=== PATIENT | female | born 1995 | race Caucasian/White ===

== ENCOUNTER 2017-12-05 11:59 | Observation (INO) ==
--- NOTE | 2017-12-05 12:10 | Emergency Department Note ---
Disposition Clinical Impression: Dehydration, mild, Intractable abdominal pain Migraine Qualifiers: Migraine type: unspecified Status migrainosus presence: without status migrainosus Intractability: not intractable Qualified Code(s): G43.909 - Migraine, unspecified, not intractable, without status migrainosus Intractable nausea and vomiting Qualifiers: Vomiting type: unspecified Qualified Code(s): R11.2 - Nausea with vomiting, unspecified Disposition: Admitted As Inpatient Condition: Fair Referrals: Ines Hansen, ROLL EXAMINER [Primary Care Provider] - Forms: ED Satisfaction Letter Time of Disposition: 15:22 General Adult HPI - General Chief complaint: ED General Medical Stated complaint: nausea,migraine,constipated multiple complaints Time Seen by Provider: 12/05/17 12:09 Source: patient Mode of arrival: ambulatory Limitations: no limitations Nursing Notes Reviewed: Yes Vital Signs Reviewed: Yes - History of Present Illness HPI Narrative: Patient is a 22-year-old female with past medical history acid reflux, gastric ulcers when she was a teenager. She presents today due to epigastric pain/ burning, radiates up into her esophagus, associated with reflux of gastric contents into the mouth. She also complains of a sensation of being short of breath due to her throat being irritated. She also states that she feels like she has a generalized headache but denies vision changes, numbness, tingling, weakness. She also admits to constipation. She says that she has vomited twice , nonbloody, nonbilious, today. She also admits to subjective fevers. She was also seen a few days ago at a different ER due to similar symptoms and was started on omeprazole. She has taken about 3 days of this medication and says that she felt somewhat better and admits that it has decreased the burning sensation. She does not take any other current medication at this time. Pain Scale: 0 - Related Data Previous Rx's Medication Instructions Recorded Metoclopramide [Reglan] 5 mg PO Q8HR #100 mls 12/02/17 Omeprazole 20 mg PO DAILY #30 tablet. 12/02/17 Allergies Allergy/AdvReac Type Severity Reaction Status Date / Time diphenhydramine AdvReac Palpitation Verified 12/02/17 10:48 [From Wendy] s All systems ED: reviewed and negative except as stated. Constitutional: Reports: fever Respiratory: Reports: dyspnea Gastrointestinal: Reports: nausea, vomiting, constipation. Denies: abdominal pain, diarrhea Genitourinary: Denies: urgency, dysuria, frequency, hematuria Integumentary: Denies: rash Neurological: Denies: headache, weakness, numbness, paresthesias Endocrine: Reports: fatigue Past Medical History - Past Medical History Attestation: Yes The following information was validated with the patient. 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 - Social History Smoking Status: Never smoker Smokeless Tobacco Status: No Alcohol use: Reports: none Drug use: Reports: none Physical Exam - General Limitations: no limitations General appearance: alert - Head Head exam: atraumatic, normocephalic, normal inspection - Eye Eye exam: Present: normal appearance, PERRL, EOMI - ENT ENT exam: normal oropharynx, mucous membranes dry - Neck Neck exam: Present: normal inspection, full ROM, trachea midline - Chest Chest inspection: Present: normal inspection, symmetric chest wall rise - Respiratory Respiratory exam: Present: normal lung sounds bilaterally - Cardiovascular Cardiovascular exam: Present: normal rhythm, tachycardia, irregular rhythm - Abdominal Exam Abdominal exam: Present: soft, tenderness (mild to moderate epigastric pain). Absent: distention, guarding, rebound, rigidity - Extremities Exam Extremities exam: Present: normal inspection, full ROM. Absent: tenderness, pedal edema - Neurological Exam Neurological exam: Present: alert, oriented X3 - Psychiatric Psychiatric exam: Present: normal affect, normal mood - Skin Skin exam: Present: warm, dry, intact, normal color Course Course Narrative: Patient was tachycardic on presentation. Otherwise, the rest of the vitals were within normal limits. Physical exam shows a patient who appears to feel unwell, has dry mucous membranes, epigastric tenderness that is mild to moderate in intensity. Overall, she is describing epigastric burning that radiates into her throat, vomiting, GERD or ulcer related symptoms. We will give the patient GI cocktail, Phenergan for nausea, fluids, perform basic blood work, LFTs, lipase for further assessment. 15:20 white blood cell count within normal limits. LFTs and lipase within normal limits. Patient was given 1 L normal saline bolus, she was having some nausea after Zofran and gave her 25 mg of Phenergan. Despite this, she is driving intractable nausea, she is also still having epigastric abdominal discomfort after GI cocktail. She is still tachycardic in the 120s. Blood pressure remained stable at this time. We will order the patient another liter bolus. Discussed admission with the hospitalist for intractable nausea, vomiting, abdominal discomfort. She has been admitted at this time. Vital Signs Temperature 97.9 F 12/05/17 12:03 Pulse Rate 148 12/05/17 12:03 Respiratory Rate 18 12/05/17 12:03 Blood Pressure 114/89 12/05/17 12:03 O2 Sat by Pulse Oximetry 99 12/05/17 12:03 Temperature 97.9 F 12/05/17 12:03 Pulse Rate 116 12/05/17 13:54 Respiratory Rate 16 12/05/17 13:54 Blood Pressure 111/74 12/05/17 13:54 O2 Sat by Pulse Oximetry 96 12/05/17 13:54 Oxygen Delivery Oxygen Delivery Room Air Medical Decision Making - [facility] Narrative Medical decision making narrative: white blood cell count within normal limits. LFTs and lipase within normal limits. Patient was given 1 L normal saline bolus, she was having some nausea after Zofran and gave her 25 mg of Phenergan. Despite this, she is driving intractable nausea, she is also still having epigastric abdominal discomfort after GI cocktail. She is still tachycardic in the 120s. Blood pressure remained stable at this time. We will order the patient another liter bolus. Discussed admission with the hospitalist for intractable nausea, vomiting, abdominal discomfort. She has been admitted at this time. - Medical Records Medical records reviewed: Yes I reviewed the patient's medical records. - Lab Data Lab results reviewed: Yes I reviewed the patient's lab results. Result diagrams: 12/05/17 12:25 12/05/17 14:22 Lab Results 12/05/17 12/05/17 12/05/17 Range/Units 12:25 12:25 14:22 WBC 7.3 (4.3-11.1) K/mcL RBC 4.74 (3.82-4.97) M/mcL Hgb 14.1 D (11.5-15.4) g/dL Hct 44.3 (35.3-44.9) % MCV 93.5 (83.0-100.0) fL MCH 29.7 (28.0-33.3) pg MCHC 31.8 (31.6-35.5) g/dL RDW 12.4 (11.5-14.5) % Plt Count 150 (140-400) K/mcL MPV 12.5 H (9.4-12.4) fL Immature Gran % Test Not Performed Seg Neutrophils % 20.0 % Band Neutrophils % 10.0 H (0-4) % Lymphocytes % 62.0 % Monocytes % 8.0 % Eosinophils % Test Not Performed Basophils % Test Not Performed Neutrophils # 2.2 (1.6-8.9) K/mcL Lymphocytes # 4.5 (0.6-4.6) K/mcL Monocytes # 0.6 (0.0-1.3) K/mcL Eosinophils # Test Not Performed Basophils # Test Not Performed Reactive Lymphocytes Present A (Not Present) Platelet Estimate Normal (Normal) Clumped Platelets Few A (Not Present) Immature Plt Fraction 12.2 H (1.1-6.1) % Sodium 135 L (136-145) mEq/L Potassium 4.6 (3.5-5.1) mEq/L Chloride 101 (98-107) mEq/L Carbon Dioxide 15 L (23-29) mEq/L BUN 11 (6-20) mg/dL Creatinine 0.61 (0.60-1.20) mg/dL Est GFR ( Amer) > 60 (> 60) Est GFR (Non-Af Amer) > 60 (> 60) BUN/Creatinine Ratio 18 (6-26) Glucose 55 L (70-105) mg/dL Calculated Osmolality 277 L (280-300) Calcium 8.9 (8.6-10.3) mg/dL Total Bilirubin 0.5 (0.3-1.0) mg/dL Direct Bilirubin 0.2 (0.0-0.2) mg/dL Indirect Bilirubin 0.3 (0.0-1.2) mg/dL AST 44 H (13-39) Units/L ALT 23 (7-52) Units/L Alkaline Phosphatase 67 (34-104) Units/L Serum Total Protein 7.8 (6.4-8.9) g/dL Albumin 4.3 (3.5-5.7) g/dL Globulin 3.5 (2.4-3.5) g/dL Albumin/Globulin Ratio 1.2 (1.1-2.2) Lipase 63 (11-82) Units/L Specimen Rejected Hemolyzed S.B.A.R. - S.B.A.R. Situation: Demographics, MOA Background: Presenting Complaint S.B.A.R. Report Given to: Francisca AriasBShayyANathaniel Repor Time: 15:29
[2017-12-05] MEDS ORDERED: GI Cocktail 40 ML EACH PO ONE (12:18)
[2017-12-05] MEDS ORDERED: Ondansetron 4 MG/2 ML VIAL IVP ONE (12:18)
[2017-12-05] MEDS ORDERED: 0.9 % Sodium Chloride 1,000 ML IVC ONE ×2 (12:20→15:16)
--- NOTE | 2017-12-05 12:39 | Emergency Department Note ---
Disposition Clinical Impression: Dehydration, mild Migraine Qualifiers: Migraine type: unspecified Status migrainosus presence: without status migrainosus Intractability: not intractable Qualified Code(s): G43.909 - Migraine, unspecified, not intractable, without status migrainosus Disposition: Home, Self-Care Forms: ED Satisfaction Letter, Work/School Release Time of Disposition: 12:39 General Adult HPI - General Chief complaint: ED General Medical Stated complaint: nausea,migraine,constipated multiple complaints Time Seen by Provider: 12/05/17 12:09 Source: patient Mode of arrival: ambulatory Limitations: no limitations Nursing Notes Reviewed: Yes Vital Signs Reviewed: Yes - History of Present Illness Pain Scale: 0 - Related Data Previous Rx's Medication Instructions Recorded Metoclopramide [Reglan] 5 mg PO Q8HR #100 mls 12/02/17 Omeprazole 20 mg PO DAILY #30 tablet. 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 We had independent face-to- face examination and discussion. The patient was seen with the emergency medicine resident Dr. Javan Lofton I examined this patient and my medical decision-making was reviewed with the Resident Physician/TRIPLE DRUM OPERATOR/PA. I agree with the documented findings, disposition and treatment plan as described except to the extent set forth below. Briefly [id number]-[id number] female history of migraines this been having multiple episodes nausea vomiting and headache. Was seen yesterday at an outside ER was given a prescription for omeprazole but no ED workup. Patient appears dehydrated mild distress be given analgesics antiemetics IV fluid bolus screening labs. Disposition pending.: Time: 12:38 Vital Signs Temperature 97.9 F 12/05/17 12:03 Pulse Rate 148 03/31/18 12:03 Respiratory Rate 18 12/05/17 12:03 Blood Pressure 114/89 12/05/17 12:03 O2 Sat by Pulse Oximetry 99 12/05/17 12:03 Temperature 97.9 F 12/05/17 12:03 Pulse Rate 148 12/05/17 12:03 Respiratory Rate 18 12/05/17 12:03 Blood Pressure 114/89 12/05/17 12:03 O2 Sat by Pulse Oximetry 99 12/05/17 12:03 Oxygen Delivery Oxygen Delivery Room Air
[2017-12-05 12:46] LABS: Hematocrit 44.3 % (35.3-44.9); Hemoglobin 14.1 g/dL (11.5-15.4); Immature Platelets 12.2 % (1.1-6.1); Mean Corpuscular HGB Conc 31.8 g/dL (31.6-35.5); Mean Corpuscular Hemoglobin 29.7 pg (28.0-33.3); Mean Corpuscular Volume 93.5 fL (83.0-100.0); Mean Platelet Volume 12.5 fL (9.4-12.4); Monocytes # 0.6 K/mcL (0.0-1.3); Platelet Count 150 K/mcL (140-400); Red Blood Count 4.74 M/mcL (3.82-4.97); Red Cell Distribution Width 12.4 % (11.5-14.5)
[2017-12-05 13:24] LABS: Lymphocytes # 4.5 K/mcL (0.6-4.6); Neutrophils # 2.2 K/mcL (1.6-8.9); Platelet Estimate Normal (Normal); Reactive Lymphocytes Present (Not Present)
[2017-12-05 13:25] LABS: Platelet Clumps Few (Not Present)
[2017-12-05] MEDS ORDERED: *HR* Promethazine 25 MG/ML VIAL IVP ONE (14:16)
[2017-12-05 14:47] LABS: Alanine Aminotransferase 23 Units/L (7-52); Albumin 4.3 g/dL (3.5-5.7); Albumin/Globulin Ratio 1.2 (1.1-2.2); Alkaline Phosphatase 67 Units/L (34-104); Aspartate Amino Transferase 44 Units/L (13-39); BUN/Creatinine Ratio 18 (6-26); Bilirubin,Direct 0.2 mg/dL (0.0-0.2); Bilirubin,Indirect 0.3 mg/dL (0.0-1.2); Bilirubin,Total 0.5 mg/dL (0.3-1.0); Blood Urea Nitrogen 11 mg/dL (6-20); Calcium 8.9 mg/dL (8.6-10.3); Carbon Dioxide 15 mEq/L (23-29); Chloride 101 mEq/L (98-107); Globulin 3.5 g/dL (2.4-3.5); Glucose 55 mg/dL (70-105); Lipase 63 Units/L (11-82); Osmolality,Calculated 277 (280-300); Potassium 4.6 mEq/L (3.5-5.1); Sodium 135 mEq/L (136-145); Total Protein 7.8 g/dL (6.4-8.9); eGFR For African Americans > 60 (> 60); eGFR For Non-African Americans > 60 (> 60)
[2017-12-05] MEDS ORDERED: Naloxone 0.4 MG/ML INJ IVP PRN (16:42)
--- NOTE | 2017-12-05 16:59 | Internal Med History&Physical ---
Date of Encounter: 12/05/17 Time of Encounter: 16:50 Assessment and Plan (1) Intractable nausea and vomiting Current visit: Yes Status: Acute Patient has intractable nausea vomiting, most likely related to the migraine attack. But will check KUB to rule out obstructions. Check hCG to rule out a . patient does state that she has constipation, no stool for 5 days. will waiting for the x-ray to determine what agency to give to her, she is unable to tolerated any oral. may have to start the enema if x-ray does show constipation Continue supportive care IV fluids, zofran and nothing by mouth Qualifiers: Vomiting type: unspecified Qualified Code(s): R11.2 - Nausea with vomiting , unspecified (2) Migraine Current visit: Yes Status: Acute Patient has persistent headache from migraine attack we will try a migraine cocktail Qualifiers: Migraine type: without aura Status migrainosus presence: without status migrainosus Intractability: intractable Qualified Code(s): G43.019 - Migraine without aura, intractable, without status migrainosus (3) Constipation Current visit: Yes Status: Chronic Pending abdominal x-ray Qualifiers: Constipation type: chronic idiopathic constipation Qualified Code(s): K59.04 - Chronic idiopathic constipation (4) Dehydration, mild Current visit: Yes Status: Acute Continue IV fluids Internal Medicine - H&P: HPI Chief complaint: nausea and vomiting Admitted From: Home Plans for Post Hospital Care: Home History of present illness: Ms. Moran is a 22 year old female who has history of migraine presented to emergency room for nausea vomiting headache for 5 days. Patient has a 5 month old baby, per her mother, patient 's migraine BETTS was well controlled up to the time she delivered her baby 5 months ago. Over the last 5 days, her nausea vomiting became persistent, she is unable to keep any thing down. Headache is typical for her migraine attacks, located in a different place, front ,top , left , 10 out of 10, constant associated was photophobia and nausea vomiting. BETTS worsening at night. She has been unable to keep any since down over last 5 days she is to be dehydrated. Headache worse at night which is typical for her migraine headaches currently she drinks is 7 out of 10. She denies fever or chills no cough. Denies abdominal pain, patient does complain of constipation, no stool over last 5 days. In the emergency room lab was unremarkable. She is going to be admitted for headaches nausea vomiting controlled, constipation. We will check KUB to assist Past Med Surg Social Fam HX - Past Medical History Medical history: non-contributory, GERD, migraine Psychiatric history: no psych history - Social History Smoking Status: Never smoker Smokeless Tobacco Status: No Alcohol use: none Drug use: none Internal Medicine - H&P: Meds Metoclopramide [Reglan] 5 mg PO Q8HR #100 mls 12/02/17 [Rx] Omeprazole 20 mg PO DAILY #30 tablet. 12/02/17 [Rx] 3 Allergy/AdvReac Type Severity Reaction Status Date / Time diphenhydramine AdvReac Palpitation Verified 12/05/17 16:20 [From Wendy] s All Systems PM: A 10-system review of systems was performed and is negative for pertinent findings except as documented above in the HPI. - Constitutional Vitals: Temp Pulse Resp BP Pulse Ox 99 F 110 16 120/64 995 12/05/17 16:24 12/05/17 16:04 12/05/17 16:24 12/05/17 16:24 12/05/17 16:04 Internal Med - H&P Results - Labs CBC & Chem 7: 12/05/17 12:25 12/05/17 14:22
[2017-12-05] MEDS ORDERED: Ketorolac 30 MG/ML VIAL IVP ONE (17:11)
[2017-12-05] MEDS ORDERED: Metoclopramide 10 MG/2 ML VIAL IVP ONE (17:12)
[2017-12-05 17:17] LABS: INR 1.1; Prothrombin Time 12.3 Seconds (9.4-12.1)
[2017-12-05] MEDS ORDERED: D5% in Water 1,000 ML IVC ONE (17:48)
[2017-12-05] MEDS ORDERED: Dextrose Gel 15 GM/37.5 ML TUBE PO ONE (18:02)
[2017-12-05] MEDS: D5% in 0.45% NACL 1,000 ML IVC SCH (19:39)
[2017-12-05] MEDS: Pantoprazole 40 MG VIAL IVP SCH (19:40)
[2017-12-05] MEDS: *HR* LORazepam 2 MG/ML VIAL IVP SCH ×2 (19:43→23:43)
[2017-12-05] MEDS: Ringers Solution, Lactated 1,000 ML IVC SCH (21:15)
[2017-12-06] MEDS: Metoclopramide 10 MG/10 ML UD.LIQ PO SCH ×2 (01:33→09:00)
[2017-12-06] MEDS ORDERED: Acetaminophen 325 MG TABLET PO ONE (03:32)
[2017-12-06] MEDS: *HR* LORazepam 2 MG/ML VIAL IVP SCH ×2 (03:44→08:59)
[2017-12-06] MEDS ORDERED: Acetaminophen/Butalbital/CaffeineTABLET PO ONE ×2 (05:31→20:30)
[2017-12-06] MEDS: D5% in 0.45% NACL 1,000 ML IVC SCH (05:43)
[2017-12-06] MEDS: Pantoprazole 40 MG VIAL IVP SCH ×2 (05:43→18:43)
[2017-12-06] MEDS: Ringers Solution, Lactated 1,000 ML IVC SCH (05:51)
[2017-12-06 08:25] LABS: Hematocrit 33.2 % (35.3-44.9); Mean Corpuscular HGB Conc 31.6 g/dL (31.6-35.5); Mean Corpuscular Hemoglobin 29.2 pg (28.0-33.3); Mean Corpuscular Volume 92.2 fL (83.0-100.0); Mean Platelet Volume 11.1 fL (9.4-12.4); Platelet Count 203 K/mcL (140-400); Red Cell Distribution Width 12.7 % (11.5-14.5)
[2017-12-06 08:43] LABS: Hemoglobin 10.5 g/dL (11.5-15.4)
[2017-12-06 08:52] LABS: BUN/Creatinine Ratio 7 (6-26); Blood Urea Nitrogen 4 mg/dL (6-20); Calcium 9.1 mg/dL (8.6-10.3); Carbon Dioxide 19 mEq/L (23-29); Chloride 105 mEq/L (98-107); Glucose 67 mg/dL (70-105); Magnesium 1.7 mg/dL (1.6-2.6); Osmolality,Calculated 279 (280-300); Potassium 3.6 mEq/L (3.5-5.1); Sodium 137 mEq/L (136-145); eGFR For African Americans > 60 (> 60); eGFR For Non-African Americans > 60 (> 60)
--- NOTE | 2017-12-06 12:41 | Internal Med Progress Note ---
Date of Encounter: 12/06/17 Time of Encounter: 12:38 - Assessment and plan (1) Intractable nausea and vomiting Current Visit: Yes Status: Acute Assessment and plan: Patient has intractable nausea vomiting, most likely related to the migraine attack. But will check KUB to rule out obstructions. Check hCG to rule out a . patient does state that she has constipation, no stool for 5 days. will waiting for the x-ray to determine what agency to give to her, she is unable to tolerated any oral. may have to start the enema if x-ray does show constipation - Now will try and advance diet, hold IV fluids. Qualifiers: Vomiting type: unspecified Qualified Code(s): R11.2 - Nausea with vomiting , unspecified (2) Dehydration, mild Current Visit: Yes Status: Acute (3) Migraine Current Visit: Yes Status: Acute Assessment and plan: Resolved with migraine cocktail and compazine Qualifiers: Migraine type: without aura Status migrainosus presence: without status migrainosus Intractability: intractable Qualified Code(s): G43.019 - Migraine without aura, intractable, without status migrainosus (4) Constipation Current Visit: Yes Status: Chronic Qualifiers: Constipation type: chronic idiopathic constipation Qualified Code(s): K59.04 - Chronic idiopathic constipation - Subjective Interval history: Patient states headache is resolved. She was feeling some nausea but now feels like she is ready to try some food. - Constitutional Vitals: Temp Pulse Resp BP Pulse Ox 97.4 F L 105 15 101/67 97 12/06/17 11:26 12/06/17 11:26 12/06/17 11:26 12/06/17 11:26 12/06/17 11:26 - Head Head exam: Present: atraumatic, normocephalic - Eye Eye exam: Present: PERRL, conjuntiva pink, sclera anicteric Pupils: Present: PERRL - Neck Neck exam general surgery: Present: supple, trachea midline. Absent: lymphadenopathy - Respiratory Respiratory exam: Present: CTAB. Absent: accessory muscle use, rales, rhonchi, wheezes - Cardiovascular Cardiovascular exam: Present: RRR, +S1, +S2. Absent: diastolic murmur, gallop, rubs, systolic murmur - GI/Abdominal GI/Abdominal exam: Present: normal bowel sounds, soft, no peritoneal signs. Absent: distended, tenderness - Extremities Exam Extremities exam: Present: warm, radial pulses palpable and symmetrical. Absent : calf tenderness, cyanotic, pedal edema - Neurological Exam Neurological exam: Present: CN II-XII intact, oriented X3, no focal deficits. Absent: pronater drift, facial droop, speech deficit - Skin Skin exam: Present: dry, intact Internal Medicine: Result - Labs CBC & Chem 7: 12/06/17 07:21 12/06/17 07:21 Labs: Short CBC 12/06/17 Range/Units 07:21 WBC 6.1 (4.3-11.1) K/mcL Hgb 10.5 L D (11.5-15.4) g/dL Hct 33.2 L (35.3-44.9) % Plt Count 203 (140-400) K/mcL BMP 12/06/17 07:21 Sodium 137 Potassium 3.6 Chloride 105 Carbon Dioxide 19 L BUN 4 L Creatinine 0.56 L Glucose 67 L Calcium 9.1 - ABG Interpretation ABG results: PT/INR, D-dimer PT 12.3 Seconds (9.4-12.1) H 12/05/17 17:05 - Impressions Impressions Abdomen X-Ray 12/05/17 16:44 IMPRESSION: 1. Mildly abnormal but nonspecific bowel gas pattern. Short-term follow-up examination recommended if clinically indicated. 2. No plain film findings to suggest presence of significant constipation. D/ / 12/05/2017 17:27:52 Winston Dominguez MD / lore Interpreting Provider: Winston Dominguez MD Consult Discharge Plan - Plan Referrals: Ines Hansen, ROSALINA [Primary Care Provider] -
[2017-12-06] MEDS: Metoclopramide 10 MG/2 ML VIAL IVP SCH (18:43)
[2017-12-06] MEDS: *HR* LORazepam 2 MG/ML VIAL IVP PRN (19:52)
[2017-12-07] MEDS: Metoclopramide 10 MG/2 ML VIAL IVP SCH ×3 (03:09→16:48)
[2017-12-07] MEDS: Pantoprazole 40 MG VIAL IVP SCH ×2 (06:04→16:48)
[2017-12-07 07:31] LABS: Basophils # 0.1 K/mcL (0.0-0.2); Eosinophils % 0.2 %; Hematocrit 35.5 % (35.3-44.9); Hemoglobin 11.4 g/dL (11.5-15.4); Immature Granulocytes % 0.3 % (0-4); Lymphocytes # 4.1 K/mcL (0.6-4.6); Lymphocytes % 65.5 %; Mean Corpuscular HGB Conc 32.1 g/dL (31.6-35.5); Mean Corpuscular Hemoglobin 28.9 pg (28.0-33.3); Mean Corpuscular Volume 89.9 fL (83.0-100.0); Mean Platelet Volume 10.7 fL (9.4-12.4); Monocytes # 0.4 K/mcL (0.0-1.3); Monocytes % 6.6 %; Neutrophils # 1.6 K/mcL (1.6-8.9); Platelet Count 213 K/mcL (140-400); Red Blood Count 3.95 M/mcL (3.82-4.97); Red Cell Distribution Width 12.9 % (11.5-14.5); Segmented Neutrophils % 26.4 %
[2017-12-07 07:53] LABS: BUN/Creatinine Ratio 6 (6-26); Blood Urea Nitrogen 3 mg/dL (6-20); Calcium 8.9 mg/dL (8.6-10.3); Carbon Dioxide 26 mEq/L (23-29); Chloride 102 mEq/L (98-107); Glucose 82 mg/dL (70-105); Osmolality,Calculated 286 (280-300); Potassium 3.4 mEq/L (3.5-5.1); Sodium 140 mEq/L (136-145); eGFR For African Americans > 60 (> 60); eGFR For Non-African Americans > 60 (> 60)
[2017-12-07 08:01] LABS: Platelet Estimate Normal (Normal); Reactive Lymphocytes Present (Not Present)
[2017-12-07] MEDS: *HR* LORazepam 2 MG/ML VIAL IVP PRN ×2 (09:13→22:59)
[2017-12-07] MEDS ORDERED: 0.9 % Sodium Chloride 1,000 ML IVC ONE (13:31)
--- NOTE | 2017-12-07 14:06 | Internal Med Progress Note ---
Date of Encounter: 12/07/17 Time of Encounter: 14:04 - Assessment and plan (1) Intractable nausea and vomiting Current Visit: Yes Status: Acute Assessment and plan: Patient has intractable nausea vomiting, most likely related to the migraine attack. But will check KUB to rule out obstructions. Check hCG to rule out a . patient does state that she has constipation, no stool for 5 days. will waiting for the x-ray to determine what agency to give to her, she is unable to tolerated any oral. may have to start the enema if x-ray does show constipation. No resolve after treating Migraines and GERD Consult GI Qualifiers: Vomiting type: unspecified Qualified Code(s): R11.2 - Nausea with vomiting , unspecified (2) Dehydration, mild Current Visit: Yes Status: Acute Assessment and plan: add IVF (3) Migraine Current Visit: Yes Status: Acute Assessment and plan: Resolved with migraine cocktail and compazine Headache has returned Patient breast feeds and we may have to avoid triptans. Will continue Tylenol therapy for now. Will discuss ibuprofen with patient. Qualifiers: Migraine type: without aura Status migrainosus presence: without status migrainosus Intractability: intractable Qualified Code(s): G43.019 - Migraine without aura, intractable, without status migrainosus (4) Constipation Current Visit: Yes Status: Chronic Qualifiers: Constipation type: chronic idiopathic constipation Qualified Code(s): K59.04 - Chronic idiopathic constipation (5) Tachycardia Current Visit: Yes Status: Acute Assessment and plan: Likley dehydration versus anxiety Continue Ativan PRN will give IVF and montir Check 12 lead EKG - Subjective Interval history: Patient states headache is resolved. Nausea is still persisting. She is picking at her food. - Constitutional Vitals: Temp Pulse Resp BP Pulse Ox 99.2 F 112 16 108/75 96 12/07/17 12:15 12/07/17 12:15 12/07/17 12:15 12/07/17 12:15 12/07/17 12:15 - Head Head exam: Present: atraumatic, normocephalic - Eye Eye exam: Present: PERRL, conjuntiva pink, sclera anicteric Pupils: Present: PERRL - Neck Neck exam general surgery: Present: supple, trachea midline. Absent: lymphadenopathy - Respiratory Respiratory exam: Present: CTAB. Absent: accessory muscle use, rales, rhonchi, wheezes - Cardiovascular Cardiovascular exam: Present: RRR, +S1, +S2. Absent: diastolic murmur, gallop, rubs, systolic murmur - GI/Abdominal GI/Abdominal exam: Present: normal bowel sounds, soft, no peritoneal signs. Absent: distended, tenderness - Extremities Exam Extremities exam: Present: warm, radial pulses palpable and symmetrical. Absent : calf tenderness, cyanotic, pedal edema - Neurological Exam Neurological exam: Present: CN II-XII intact, oriented X3, no focal deficits. Absent: pronater drift, facial droop, speech deficit - Skin Skin exam: Present: dry, intact Internal Medicine: Result - Labs CBC & Chem 7: 12/07/17 06:02 12/07/17 06:02 Labs: Short CBC 12/07/17 Range/Units 06:02 WBC 6.2 (4.3-11.1) K/mcL Hgb 11.4 L (11.5-15.4) g/dL Hct 35.5 (35.3-44.9) % Plt Count 213 (140-400) K/mcL Neutrophils # 1.6 (1.6-8.9) K/mcL BMP 12/07/17 06:02 Sodium 140 Potassium 3.4 L Chloride 102 Carbon Dioxide 26 BUN 3 L Creatinine 0.49 L Glucose 82 Calcium 8.9 - ABG Interpretation ABG results: PT/INR, D-dimer PT 12.3 Seconds (9.4-12.1) H 12/05/17 17:05 Consult Discharge Plan - Plan Referrals: Ines Hansen CNP [Primary Care Provider] -
--- NOTE | 2017-12-07 14:30 | Gastroenterology Consult Note ---
<Zac Cespedes - Last Filed: 12/07/17 17:33> Date of Encounter: 12/07/17 Time of Encounter: 14:25 - Assessment and plan (1) Intractable nausea and vomiting Status: Acute Assessment and plan: Findings are consistent with history of migraines Will perform EGD tomorrow to evaluate for upper GI etiology Continue Zofran, Reglan, and Tylenol prn Qualifiers: Vomiting type: unspecified Qualified Code(s): R11.2 - Nausea with vomiting , unspecified (2) GERD (gastroesophageal reflux disease) Status: Chronic Assessment and plan: Patient takes Omeprazole at home Continue PPI NPO after midnight Anticipate EGD in AM Qualifiers: Esophagitis presence: esophagitis presence not specified Qualified Code(s) : K21.9 - Gastro-esophageal reflux disease without esophagitis - Time Spent With Patient Total time spent is greater than 50% in coordination of care (as documented) at patient's floor/unit and/or counseling patient: GI History of Present Illness - Data of Consult Patient: new to practice Consult date: 12/07/17 Requesting Physician: Steffi Jeter MD - Consult Narrative Reason for consult: Intractable N/V History of present illness: Ms. Moran is a 22 year old female with a PMH of migraines, GERD, and third vaginal delivery 5 months ago that presented c/o intractable headaches, anorexia , nausea, vomiting, constipation, and low grade temperature. Patient reports having an EGD at the age of 13 due to GERD and reports taking Omeprazole and Reglan at home without relief. Patient is currently on Protonix IV, Zofran, Reglan, and Tylenol with some improvement in symptoms. She desires to continue breast feeding and is now pumping due not feeling well. She denies chills, CP, SOB, melena, vaginal bleeding, or family history of autoimmune disease. Patient' s mother is a police captain and was called on FaceTime during time of encounter. Sister is at bedside. Colonoscopy: Denies EGD: 2009 EGD revealed gastric ulcers Past Med Surg Social Fam HX - Past Medical History Medical history: GERD, migraine Psychiatric history: no psych history - Past Surgical History Surgical History: cholecystectomy, other (EGD, wisdom teeth removal) - Social History Smoking Status: Former smoker Smokeless Tobacco Status: No Alcohol use: none Drug use: none Current living situation: With Family Activity Level: Independent ambulation Recent Out of Country Travel Within the Last 8 Weeks: No Exposure or Possible Exposure to Illness During Travel: No - Family History Mother Hx Family Autoimmune Disorders: No Father Hx Family Medical Disorders: Yes (Arthritis) - Gastrointestinal Gastrointestinal: Present: abdominal pain, constipation, dyspepsia, heartburn, nausea, vomiting. Absent: bloating, change in bowel habits, coffee ground emesis, diarrhea, hematemesis, hematochezia, melena - Constitutional Constitutional: anorexia, fatigue, fever(s), weight loss, no weight gain - EENT Nose, mouth and throat: Absent: dysphagia, sore throat - Cardiovascular Cardiovascular ROS: Present: palpitations. Absent: chest pain, irregular heart rhythm - Respiratory Respiratory IM: Absent: cough, dyspnea - Genitourinary Genitourinary: Absent: change in color, Urinary frequency - Neurological ROS Neurological GI: Present: confusion, headache(s), weakness. Absent: dizziness, memory loss - Hematologic/Lymphatic Hematologic/Lymphatic pediatric: Present: as per HPI. Absent: easy bleeding - Musculoskeletal Musculoskeletal ROS GI: Present: as per HPI. Absent: back pain - Integumentary Integumentary GI: Absent: jaundice, pruritis, rash - Psychiatric ROS Psychiatric GI: Absent: anxiety, depression - Endocrine Endocrine IM: Present: fatigue. Absent: cold intolerance, heat intolerance - Constitutional Vitals: Temp Pulse Resp BP Pulse Ox 99.2 F 112 16 108/75 96 12/07/17 12:15 12/07/17 12:15 12/07/17 12:15 12/07/17 12:15 12/07/17 12:15 General appearance: Present: cooperative, A&O X 3, no acute distress, answers questions appropriately - Head Head exam: Present: atraumatic, normocephalic - Eye Eye exam: Present: normal appearance, sclera anicteric - Neck Neck exam general surgery: Present: normal inspection, trachea midline - Respiratory Respiratory exam: Present: CTAB - Cardiovascular Cardiovascular exam: Present: RRR, +S1, +S2 - GI/Abdominal GI/Abdominal exam: Present: normal bowel sounds, soft, tenderness (mild epigastric TTP), no peritoneal signs - Rectal Rectal exam: Present: deferred - Extremities Exam Extremities exam: Present: warm. Absent: pedal edema - Neurological Exam Neurological exam: Present: no focal deficits - Psychiatric Psychiatric exam: Present: normal affect, normal mood - Skin Skin exam: Present: dry, intact, pallor, warm Results - Labs CBC & Chem 7: 12/07/17 06:02 12/07/17 06:02 Labs: Last Result Calcium 8.9 mg/dL (8.6-10.3) 12/07/17 06:02 Entire Visit Hgb 11.4 g/dL (11.5-15.4) L 12/07/17 06:02 Hct 35.5 % (35.3-44.9) 12/07/17 06:02 PT 12.3 Seconds (9.4-12.1) H 12/05/17 17:05 Total Bilirubin 0.5 mg/dL (0.3-1.0) 12/05/17 14:22 AST 44 Units/L (13-39) H 12/05/17 14:22 ALT 23 Units/L (7-52) 12/05/17 14:22 Lipase 63 Units/L (11-82) 12/05/17 14:22 - ABG ABG results: PT/INR, D-dimer PT 12.3 Seconds (9.4-12.1) H 12/05/17 17:05 - Impressions ITS Impressions Abdomen X-Ray 12/05/17 16:44 IMPRESSION: 1. Mildly abnormal but nonspecific bowel gas pattern. Short-term follow-up examination recommended if clinically indicated. 2. No plain film findings to suggest presence of significant constipation. D/ / 12/05/2017 17:27:52 Winston Dominguez MD / lore Interpreting Provider: Winston Dominguez MD Consult Discharge Plan - Plan Instructions: How to Take a Blood Pressure (DC), Gastroesophageal Reflux Disease (DC), Hypotension (DC), Bradycardia (DC) Referrals: Easton Agrawal MD [Partnered Physician] - Ines Hansen CNP [Primary Care Provider] - Prescriptions: Propranolol [Inderal] 20 mg PO BID #60 tablet <Easton Agrawal - Last Filed: 12/23/17 13:05> Date of Encounter: 12/07/17 - Time Spent With Patient Total time spent is greater than 50% in coordination of care (as documented) at patient's floor/unit and/or counseling patient: GI History of Present Illness - Data of Consult Requesting Physician: Alejo Hannah MD - Consult Narrative History of present illness: Ms. Moran is a 22 year old female - Constitutional Vitals: Temp Pulse Resp BP Pulse Ox 98.0 F 97 15 106/69 95 12/09/17 14:38 12/09/17 14:38 12/09/17 14:38 12/09/17 14:38 12/09/17 14:38 Results - Labs CBC & Chem 7: 12/09/17 05:31 12/09/17 05:31 Labs: Last Result Calcium 8.7 mg/dL (8.6-10.3) 12/09/17 05:31 Entire Visit Hgb 10.8 g/dL (11.5-15.4) L 12/09/17 05:31 Hct 34.2 % (35.3-44.9) L 12/09/17 05:31 PT 12.3 Seconds (9.4-12.1) H 12/05/17 17:05 Total Bilirubin 0.5 mg/dL (0.3-1.0) 12/05/17 14:22 AST 44 Units/L (13-39) H 12/05/17 14:22 ALT 23 Units/L (7-52) 12/05/17 14:22 Lipase 63 Units/L (11-82) 12/05/17 14:22 - ABG ABG results: PT/INR, D-dimer PT 12.3 Seconds (9.4-12.1) H 12/05/17 17:05 - Attending Attestation I examined this patient and my medical decision-making was reviewed with the Resident Physician. I agree with the documented findings, disposition and treatment plan as described except to the extent set forth below.
--- NOTE | 2017-12-07 14:59 | Electrocardiograph Report ---
[address] [place], [place] [address] Test Date: 2017-12-07 Pat Name: India Moran Department: 115 Room: 3A41 Gender: [employer] Delivery Consultant: [id number] : 1995 Requested By: Harriett Jeter Order Number: [id number] Reading MD: Calixto Hewitt Measurements Intervals Clever Rate: 118 P: 49 OK: 157 QRS: 47 QRSD: 79 T: -26 QT: 340 QTc: 410 Interpretive Statements SINUS TACHYCARDIA Electronically Signed On 12-07-2017 14:57:55 EDT by Calixto Hewitt
[2017-12-07] MEDS: Acetaminophen 325 MG TABLET PO PRN (16:48)
[2017-12-07] MEDS: Ondansetron 4 MG/2 ML VIAL IVP PRN ×2 (16:53→22:58)
[2017-12-07] MEDS: 0.9 % Sodium Chloride 1,000 ML IVC SCH (20:18)
[2017-12-07] MEDS: MetroNIDAZOLE 500 MG/100 ML 500 MG/100 ML BAG IVPB SCH (23:00)
[2017-12-08] MEDS: Metoclopramide 10 MG/2 ML VIAL IVP SCH ×2 (01:52→10:41)
[2017-12-08] MEDS: Pantoprazole 40 MG VIAL IVP SCH ×2 (05:22→16:20)
[2017-12-08] MEDS: 0.9 % Sodium Chloride 1,000 ML IVC SCH (05:22)
[2017-12-08] MEDS: Acetaminophen 325 MG TABLET PO PRN ×2 (05:27→16:20)
[2017-12-08 06:58] LABS: Hematocrit 31.4 % (35.3-44.9); Mean Corpuscular HGB Conc 31.8 g/dL (31.6-35.5); Mean Corpuscular Hemoglobin 28.9 pg (28.0-33.3); Mean Corpuscular Volume 90.8 fL (83.0-100.0); Mean Platelet Volume 10.4 fL (9.4-12.4); Platelet Count 207 K/mcL (140-400); Red Blood Count 3.46 M/mcL (3.82-4.97); Red Cell Distribution Width 12.9 % (11.5-14.5)
[2017-12-08 07:08] LABS: BUN/Creatinine Ratio 7 (6-26); Blood Urea Nitrogen 3 mg/dL (6-20); Calcium 8.1 mg/dL (8.6-10.3); Carbon Dioxide 29 mEq/L (23-29); Chloride 101 mEq/L (98-107); Glucose 129 mg/dL (70-105); Osmolality,Calculated 288 (280-300); Sodium 140 mEq/L (136-145); eGFR For African Americans > 60 (> 60); eGFR For Non-African Americans > 60 (> 60)
[2017-12-08 07:36] LABS: Lymphocytes # 3.4 K/mcL (0.6-4.6); Monocytes # 0.3 K/mcL (0.0-1.3); Neutrophils # 1.9 K/mcL (1.6-8.9); Platelet Estimate Normal (Normal); Reactive Lymphocytes Present (Not Present)
[2017-12-08] MEDS: MetroNIDAZOLE 500 MG/100 ML 500 MG/100 ML BAG IVPB SCH (07:50)
[2017-12-08] MEDS: Ondansetron 4 MG/2 ML VIAL IVP PRN (07:59)
[2017-12-08] MEDS ORDERED: *HR* Midazolam HCl 5 MG/5 ML VIAL IVP ONE (11:58)
[2017-12-08] MEDS ORDERED: *HR* FentaNYL (PF) 100 MCG/2 ML VIAL ONE (11:59)
[2017-12-08] MEDS ORDERED: *HR* Promethazine 25 MG/ML VIAL ONE (12:11)
[2017-12-08] MEDS ORDERED: *HR* LORazepam 0.5 MG TABLET PO PRN (12:49)
--- NOTE | 2017-12-08 12:51 | Internal Med Progress Note ---
Date of Encounter: 12/08/17 Time of Encounter: 12:48 - Assessment and plan (1) Migraine Current Visit: Yes Status: Acute Assessment and plan: continue tylenol prn Qualifiers: Migraine type: without aura Status migrainosus presence: without status migrainosus Intractability: intractable Qualified Code(s): G43.019 - Migraine without aura, intractable, without status migrainosus (2) Dehydration, mild Current Visit: Yes Status: Acute Assessment and plan: improving with IVF, continue same (3) Intractable nausea and vomiting Current Visit: Yes Status: Acute Assessment and plan: improving with metoclopramide Change to prn Work up is negative Qualifiers: Vomiting type: unspecified Qualified Code(s): R11.2 - Nausea with vomiting , unspecified (4) Constipation Current Visit: Yes Status: Chronic Assessment and plan: continue stool softeners Qualifiers: Constipation type: chronic idiopathic constipation Qualified Code(s): K59.04 - Chronic idiopathic constipation (5) Tachycardia Current Visit: Yes Status: Acute Assessment and plan: Improving with IVF Wean off benzos TSH WNL Continue to monitor (6) Hypokalemia Current Visit: Yes Status: Acute Assessment and plan: replaced, monitor a.m (7) GERD (gastroesophageal reflux disease) Current Visit: Yes Status: Chronic Assessment and plan: continue IV PPI For EGD today Qualifiers: Esophagitis presence: esophagitis presence not specified Qualified Code(s) : K21.9 - Gastro-esophageal reflux disease without esophagitis - Time Spent With Patient Total time spent is greater than 50% in coordination of care (as documented) at patient's floor/unit and/or counseling patient: - Subjective Interval history: 22 F Seen and examined at the bedside with her mother She is admitted and being managed for intractable n/v, tachycardia, dehydration Work up so far is negative Awaiting EGD today HR is improving with IVF TSH is WNL - Constitutional Vitals: Temp Pulse Resp BP Pulse Ox 98.3 F 99 18 112/82 100 12/08/17 12:11 12/08/17 12:35 12/08/17 12:35 12/08/17 12:35 12/08/17 12:35 General appearance: Present: A&O X 3, pleasant, no acute distress - Head Head exam: Present: atraumatic, normocephalic - Eye Eye exam: Present: PERRL, conjuntiva pink, sclera anicteric Pupils: Present: PERRL - Neck Neck exam general surgery: Present: supple, trachea midline. Absent: lymphadenopathy - Respiratory Respiratory exam: Present: CTAB. Absent: accessory muscle use, rales, rhonchi, wheezes - Cardiovascular Cardiovascular exam: Present: RRR, +S1, +S2. Absent: diastolic murmur, gallop, rubs, systolic murmur - GI/Abdominal GI/Abdominal exam: Present: normal bowel sounds, soft, no peritoneal signs. Absent: distended, tenderness - Extremities Exam Extremities exam: Present: warm, radial pulses palpable and symmetrical. Absent : calf tenderness, cyanotic, pedal edema - Neurological Exam Neurological exam: Present: alert, CN II-XII intact, oriented X3, no focal deficits. Absent: pronater drift, facial droop, speech deficit - Skin Skin exam: Present: dry, intact Internal Medicine: Result - Labs CBC & Chem 7: 12/08/17 06:35 12/08/17 06:35 Labs: Short CBC 12/08/17 Range/Units 06:35 WBC 5.6 (4.3-11.1) K/mcL Hgb 10.0 L (11.5-15.4) g/dL Hct 31.4 L (35.3-44.9) % Plt Count 207 (140-400) K/mcL Neutrophils # 1.9 (1.6-8.9) K/mcL BMP 12/08/17 06:35 Sodium 140 Potassium 3.0 L Chloride 101 Carbon Dioxide 29 BUN 3 L Creatinine 0.42 L Glucose 129 H Calcium 8.1 L - ABG Interpretation ABG results: PT/INR, D-dimer PT 12.3 Seconds (9.4-12.1) H 12/05/17 17:05 - Impressions Impressions Abdomen/Pelvis CT 12/07/17 19:00 IMPRESSION: Moderate stool burden which could be compatible with constipation. No evidence of obstruction. D/ / Rex Waller MD / Rex Waller MD Interpreting Provider: Rex Waller MD Consult Discharge Plan - Plan Referrals: Ines Hansen, TUBER MACHINE OPERATOR [Primary Care Provider] -
[2017-12-08] MEDS ORDERED: Metoclopramide 10 MG/2 ML VIAL IVP PRN (15:05)
[2017-12-08] MEDS: *HR* HYDROcodone/Acet 5/325 mg TABLET PO PRN (20:34)
[2017-12-09] MEDS: Acetaminophen 325 MG TABLET PO PRN (00:40)
[2017-12-09] MEDS: Pantoprazole 40 MG VIAL IVP SCH (05:37)
[2017-12-09] MEDS: *HR* HYDROcodone/Acet 5/325 mg TABLET PO PRN (05:57)
[2017-12-09 06:29] LABS: Basophils # 0.1 K/mcL (0.0-0.2); Basophils % 0.6 %; Eosinophils % 0.1 %; Hematocrit 34.2 % (35.3-44.9); Hemoglobin 10.8 g/dL (11.5-15.4); Immature Granulocytes % 0.4 % (0-4); Lymphocytes # 4.2 K/mcL (0.6-4.6); Lymphocytes % 53.4 %; Mean Corpuscular HGB Conc 31.6 g/dL (31.6-35.5); Mean Corpuscular Hemoglobin 29.3 pg (28.0-33.3); Mean Corpuscular Volume 92.9 fL (83.0-100.0); Mean Platelet Volume 10.6 fL (9.4-12.4); Monocytes # 0.4 K/mcL (0.0-1.3); Monocytes % 5.4 %; Neutrophils # 3.2 K/mcL (1.6-8.9); Nucleated Red Blood Cells 0.3 /100 WBC (0); Platelet Count 258 K/mcL (140-400); Red Blood Count 3.68 M/mcL (3.82-4.97); Segmented Neutrophils % 40.1 %
[2017-12-09 06:53] LABS: BUN/Creatinine Ratio 8 (6-26); Blood Urea Nitrogen 3 mg/dL (6-20); Calcium 8.7 mg/dL (8.6-10.3); Carbon Dioxide 28 mEq/L (23-29); Chloride 100 mEq/L (98-107); Glucose 75 mg/dL (70-105); Magnesium 1.7 mg/dL (1.6-2.6); Osmolality,Calculated 283 (280-300); Potassium 3.5 mEq/L (3.5-5.1); Sodium 139 mEq/L (136-145); eGFR For African Americans > 60 (> 60); eGFR For Non-African Americans > 60 (> 60)
[2017-12-09 07:38] LABS: Platelet Estimate Normal (Normal); Reactive Lymphocytes Present (Not Present)
--- NOTE | 2017-12-09 08:24 | Gastroenterology Progress Note ---
<Zac Cespedes - Last Filed: 12/09/17 10:45> Date of Encounter: 12/09/17 Time of Encounter: 08:19 - Assessment and plan (1) Intractable nausea and vomiting Status: Acute Assessment and plan: Findings are consistent with history of migraines Continue Zofran, Reglan, and Tylenol prn Stable for discharge from GI standpoint Qualifiers: Vomiting type: unspecified Qualified Code(s): R11.2 - Nausea with vomiting , unspecified (2) GERD (gastroesophageal reflux disease) Status: Chronic Assessment and plan: Patient takes Omeprazole at home Continue PPI Qualifiers: Esophagitis presence: esophagitis presence not specified Qualified Code(s) : K21.9 - Gastro-esophageal reflux disease without esophagitis (3) Schatzki's ring Status: Acute Assessment and plan: EGD revealed Schatzki ring Follow up prn - Time Spent With Patient Total time spent is greater than 50% in coordination of care (as documented) at patient's floor/unit and/or counseling patient: - Subjective Interval history: Patient seen and examined. Patient reports less severe head ache and improved nausea. She is tolarating PO intake and eager to go home today. - Constitutional Vitals: Temp Pulse Resp BP Pulse Ox 98.6 F 99 16 110/74 94 12/09/17 07:50 12/09/17 07:50 12/09/17 07:50 12/09/17 07:50 12/09/17 07:50 General appearance: Present: cooperative, A&O X 3, no acute distress, answers questions appropriately - Head Head exam: Present: atraumatic, normocephalic - Eye Eye exam: Present: normal appearance, sclera anicteric - ENT ENT exam: Present: mucous membranes moist, normal oropharynx - Neck Neck exam general surgery: Present: normal inspection, trachea midline - Respiratory Respiratory exam: Present: CTAB - Cardiovascular Cardiovascular exam: Present: RRR, +S1, +S2 - GI/Abdominal GI/Abdominal exam: Present: normal bowel sounds, soft, no peritoneal signs. Absent: tenderness - Rectal Rectal exam: Present: deferred - Extremities Exam Extremities exam: Present: warm. Absent: pedal edema - Neurological Exam Neurological exam: Present: oriented X3, no focal deficits - Psychiatric Psychiatric exam: Present: normal affect, normal mood - Skin Skin exam: Present: dry, intact, normal color, warm Results - Labs CBC & Chem 7: 12/09/17 05:31 12/09/17 05:31 Labs: Last Result Calcium 8.7 mg/dL (8.6-10.3) 12/09/17 05:31 Entire Visit Hgb 10.8 g/dL (11.5-15.4) L 12/09/17 05:31 Hct 34.2 % (35.3-44.9) L 12/09/17 05:31 PT 12.3 Seconds (9.4-12.1) H 12/05/17 17:05 Total Bilirubin 0.5 mg/dL (0.3-1.0) 12/05/17 14:22 AST 44 Units/L (13-39) H 12/05/17 14:22 ALT 23 Units/L (7-52) 12/05/17 14:22 Lipase 63 Units/L (11-82) 12/05/17 14:22 - ABG ABG results: PT/INR, D-dimer PT 12.3 Seconds (9.4-12.1) H 12/05/17 17:05 Consult Discharge Plan - Plan Instructions: How to Take a Blood Pressure (DC), Gastroesophageal Reflux Disease (DC), Hypotension (DC), Bradycardia (DC) Referrals: Easton Agrawal MD [Partnered Physician] - Ines Hansen CNP [Primary Care Provider] - Prescriptions: Propranolol [Inderal] 20 mg PO BID #60 tablet <Easton Agrawal - Last Filed: 12/28/17 07:32> Date of Encounter: 12/09/17 - Time Spent With Patient Total time spent is greater than 50% in coordination of care (as documented) at patient's floor/unit and/or counseling patient: - Constitutional Vitals: Temp Pulse Resp BP Pulse Ox 98.0 F 97 15 106/69 95 12/09/17 14:38 12/09/17 14:38 12/09/17 14:38 12/09/17 14:38 12/09/17 14:38 Results - Labs CBC & Chem 7: 12/09/17 05:31 12/09/17 05:31 Labs: Last Result Calcium 8.7 mg/dL (8.6-10.3) 12/09/17 05:31 Entire Visit Hgb 10.8 g/dL (11.5-15.4) L 12/09/17 05:31 Hct 34.2 % (35.3-44.9) L 12/09/17 05:31 PT 12.3 Seconds (9.4-12.1) H 12/05/17 17:05 Total Bilirubin 0.5 mg/dL (0.3-1.0) 12/05/17 14:22 AST 44 Units/L (13-39) H 12/05/17 14:22 ALT 23 Units/L (7-52) 12/05/17 14:22 Lipase 63 Units/L (11-82) 12/05/17 14:22 - ABG ABG results: PT/INR, D-dimer PT 12.3 Seconds (9.4-12.1) H 12/05/17 17:05 - Attending Attestation His bowels pleasant 22-year-old white female who comes who was "girl who has complaints of chest pain and dysphagia suspicious a Schatzki's ring and will plan upper endoscopy with dilation. Further recommendations as recorded I examined this patient and my medical decision-making was reviewed with the Resident Physician. I agree with the documented findings, disposition and treatment plan as described except to the extent set forth below. :
[2017-12-09] MEDS: 0.9 % Sodium Chloride 1,000 ML IVC SCH (09:42)
[2017-12-09] MEDS ORDERED: Ondansetron ODT 4 MG TAB.RAPDIS SL PRN (11:07)
--- NOTE | 2017-12-09 11:16 | Discharge Summary ---
- NOTES TO OUTPATIENT PROVIDER Notes to Outpatient Provider: Started on propanolol for migraine prophylaxis, underwent EGD with findings of Schazti ring, chronic gastritis, biopsied, will follow up with GI as outpatient. Mother has concerns about celiac disease, recommend outpatient screening with PCP or GI Orders not resulted at time of discharge: Pending orders 12/08/17 12:38 Surgical Pathology [PTH] Routine Date of Encounter: 12/09/17 Time of Encounter: 11:15 - Discharge Diagnosis (1) Migraine Priority: Primary Status: Acute Qualifiers: Migraine type: without aura Status migrainosus presence: without status migrainosus Intractability: intractable Qualified Code(s): G43.019 - Migraine without aura, intractable, without status migrainosus (2) Dehydration, mild Priority: Primary Status: Resolved (3) Intractable nausea and vomiting Priority: Primary Status: Resolved Qualifiers: Vomiting type: unspecified Qualified Code(s): R11.2 - Nausea with vomiting , unspecified (4) Constipation Priority: Secondary Status: Chronic Qualifiers: Constipation type: chronic idiopathic constipation Qualified Code(s): K59.04 - Chronic idiopathic constipation (5) Tachycardia Priority: Primary Status: Resolved (6) Hypokalemia Priority: Primary Status: Resolved (7) GERD (gastroesophageal reflux disease) Priority: Secondary Status: Chronic Qualifiers: Esophagitis presence: esophagitis presence not specified Qualified Code(s) : K21.9 - Gastro-esophageal reflux disease without esophagitis Hospital course: Ms. Moran is a 22 year old female 6 months who presented with intractable nausea and vomiting with associated tachycardia and migraine headaches. The patient has a medical history of migraine headaches, GERD. Workup on admission revealed a normal CBC, chemistry with mild hyperkalemia, INR was normal, TSH was normal, liver function tests and lipase was normal, serum test was negative. Abdomen and pelvis CAT scan was unremarkable. EKG was sinus tachycardia. EGD 12/08 showed benign esophageal stenosis which was dilated, chronic gastritis which was past seated and normal examined duodenum which was biopsied. She was recommended to continue gluten-free diet and Prilosec 40 mg by mouth daily The patient has improved with symptomatic treatment, and started on propanolol for her prevention of migraine headaches. This has also had ventricular tachycardia. The patient denies any depression or blues She is medically stable to be discharged home with appropriate follow-up with her primary care physician and gastroenterology. Discharge discussed with: patient, family, nurse, case management - Time Spent with Patient Total time spent providing and/or coordinating discharge services: Greater than 30 minutes - Discharge Medications Prescriptions: Propranolol [Inderal] 20 mg PO BID #60 tablet Home Medications: Metoclopramide [Reglan] 5 mg PO Q8HR #100 mls 12/02/17 [Rx] Acetaminophen [Tylenol] 650 mg PO Q8HR PRN tablet 12/09/17 [Rx] Docusate [Colace] 100 mg PO BID capsule 12/09/17 [Rx] Omeprazole 40 mg PO DAILY #60 tablet. 12/09/17 [Rx] Propranolol [Inderal] 20 mg PO BID #60 tablet 12/09/17 [Rx] Allergies/Adverse Reactions: 3 Allergy/AdvReac Type Severity Reaction Status Date / Time diphenhydramine AdvReac Palpitation Verified 12/05/17 16:20 [From Wendy] s Date of admission: 12/05/17 15:47 Primary care physician: Ines Hansen Consults: 12/05/17 17:49 Consult to Invasive Line Access Team [CONS] Routine Reason for Consult: limited vasc acsess Line Type: EPIV 12/07/17 13:59 Consult to Gastroenterology [CONS] Routine Consulting Provider: Gastroenterology Dana Reason for Consult: Intractable N/V Call Completed: Yes 12/08/17 16:04 Consult to Janitor Supervisor [CONS] Routine Comment: Discharging clinician: Alejo Hannah Anticipated date of discharge: 12/09/17 - Constitutional Vitals: Temp Pulse Resp BP Pulse Ox 98.6 F 99 16 110/74 94 12/09/17 07:50 12/09/17 07:50 12/09/17 07:50 12/09/17 07:50 12/09/17 07:50 General appearance: Present: A&O X 3, pleasant, no acute distress - Head Head exam: Present: atraumatic, normocephalic - Eye Eye exam: Present: PERRL, conjuntiva pink, sclera anicteric Pupils: Present: PERRL - Neck Neck exam general surgery: Present: supple, trachea midline. Absent: lymphadenopathy - Respiratory Respiratory exam: Present: CTAB. Absent: accessory muscle use, rales, rhonchi, wheezes - Cardiovascular Cardiovascular exam: Present: RRR, +S1, +S2. Absent: diastolic murmur, gallop, rubs, systolic murmur - GI/Abdominal GI/Abdominal exam: Present: normal bowel sounds, soft, no peritoneal signs. Absent: distended, tenderness - Extremities Exam Extremities exam: Present: warm, radial pulses palpable and symmetrical. Absent : calf tenderness, cyanotic, pedal edema - Neurological Exam Neurological exam: Present: alert, CN II-XII intact, oriented X3, no focal deficits. Absent: pronater drift, facial droop, speech deficit - Skin Skin exam: Present: dry, intact - Patient Status Disposition: Home, Self-Care Condition: Good Functional capacity at discharge: independent ambulation Overall status at discharge: patient is progressing back to baseline - Discharge Instructions Instructions: How to Take a Blood Pressure (DC), Gastroesophageal Reflux Disease (DC), Hypotension (DC), Bradycardia (DC) Follow Up With: Easton Agrawal MD [Partnered Physician] - Ines Hansen CNP [Primary Care Provider] - - Diet and Activity Activity: resume usual activities as tolerated Diet: other (Gluten-free diet.)
[2017-12-09 14:40] VITALS: BP 106/69
== END 2017-12-09 17:28 | disposition home or self-care (01) ==
LOC: EMEROO 11:59 → 3ANU 11:59 → SUATTDRO 15:47 → 3ANU 16:26
PROVIDERS: ADMIT Hospitalist; ATTEND Internal Medicine
PROC: ENDOEBX (2017-12-08 13:30)